=== PATIENT | female | born 2000 | race Caucasian/White ===

== ENCOUNTER 2021-03-07 21:27 | Emergency (ER) | payer OTHER ==
[~2021-03-07 21:27] MED LIST: IBUPROFEN600 MG PO
[2021-03-07 22:56] LABS: HEMOGLOBIN 13.6 gm/dl (12.3-15.3); RED BLOOD COUNT 4.59 M/UL (4.00-5.10)
[2021-03-07 23:08] LABS: BUN/CREATININE RATIO 13 (0-10)
[2021-03-08] MEDS ORDERED: PROTONIX40 MG PO (01:35)
[2021-03-08] MEDS ORDERED: MYLANTA MAXIMU355 ML PO (01:35)
== END 2021-03-08 02:15 | disposition home or self-care (01) ==
LOC: ER1 21:27
PROVIDERS: Family Medicine
DX: R10.13 Epigastric pain (principal); R10.32 Left lower quadrant pain; R10.814 Left lower quadrant abdominal tenderness; Z88.0 Allergy status to penicillin
CPT/HCPCS: 80053; 81001; 83690; 84703; 85025; 99284